=== PATIENT | female | born 1980 | race Caucasian/White ===

== ENCOUNTER 2019-01-24 23:58 | Emergency (ER) | payer SELFPAY ==
[~2019-01-24] VITALS: Ht 167.6 cm; Wt 103.0 kg
[2019-01-25 00:54] VITALS: BP 161/95
== END 2019-01-25 01:09 | disposition home or self-care (01) ==
LOC: ER 01-25 00:01
DX: J06.9 Acute upper respiratory infection, unspecified (principal)

== ENCOUNTER → 2019-05-29 | Emergency (ER) | payer SELFPAY ==
[~2019-05-29] VITALS: Ht 167.6 cm; Wt 106.6 kg
[~2019-05-29] MED LIST: IBUPROFEN 800 MG TAB PO ONE; cefTRIAXone SOD 1,000 MG VL IM ONE
[2019-05-29 13:30] VITALS: BP 152/85
== END | disposition home or self-care (01) ==
LOC: ER 11:53
DX: K04.7 Periapical abscess without sinus (principal); Z88.1 Allergy status to other antibiotic agents
CPT/HCPCS: 96372; 99283; J0696